=== PATIENT | male | born 1950 | race Two or more races ===

== ENCOUNTER 2024-09-13 18:34 | Emergency (ER) | payer OTHER, SELFPAY ==
[2024-09-13 19:02] VITALS: BP 162/84; PULSE 95; RESP 20; TEMP 37.1; O2SAT 97; BMI 24.0
--- NOTE | 2024-09-13 19:08 | EKG_ITS ---
[facility] Test Date: 2024-09-13 Pat Name: CHRISTOFER GUDINO Department: Room: - Gender: Male [employer]: : 1950 Requested By: Marc Vale ([facility]) Order Number: [id number] Reading MD: Marc Vale ([facility]) Measurements Intervals [place] Rate: 83 P: 62 WI: 131 QRS: 68 QRSD: 102 T: 51 QT: 395 QTc: 466 Interpretive Statements SINUS RHYTHM No previous ECG available for comparison /store/S0/[id number]/ecg/[id number].pdf
--- NOTE | 2024-09-13 19:08 | XR_ITS ---
Examination: CT brain head without contrast. 2-D sagittal coronal reconstructions Date and time of exam:September 13, 2024 1914 hrs. Indications: Altered mental status, weakness lethargy today, family history cerebral aneurysm CTDI: vol (mGy):51.8 DLP: (mGycm):1001 Technique: Multiple CT axial sections of the brain have been obtained, 5 mm slice thickness. Contrast has not been administered. 2-D sagittal, coronal reconstructions have been obtained Low dose protocols were performed. One or more of the following dose reduction techniques were used; automated exposure control, adjustment of the mA and/or KV according to patient size, use of iterative reconstruction technique. Findings: No significant ventricular enlargement. 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 No mass effect or midline shift Basal cisterns are not remarkable. Fourth ventricle is midline. Cranial vault intact. Impression: Negative for acute hemorrhage, mass effect or midline shift As clinically warranted, brain MRI MRA without contrast follow-up would best assess for cerebral aneurysm as well as exclude acute ischemic change
--- NOTE | 2024-09-13 19:10 | PD.EDRME ---
Rapid Medical Screening Exam RME Arrival date/time: 09/13/24 18:34 34-year-old male presents emergency department complaining of dizziness with nausea and vomiting. Chief Complaint: Nausea/Vomiting/Diarrhea Time Seen by Provider: 09/13/24 19:05 Vital signs: Vital Signs Temperature 98.7 F 09/13/24 19:02 Pulse Rate 95 09/13/24 19:02 Respiratory Rate 20 09/13/24 19:02 Blood Pressure 162/84 H 09/13/24 19:02 Pulse Oximetry (%) 97 09/13/24 19:02 Oxygen Delivery Method Room Air 09/13/24 19:02 Vital signs reviewed by provider: Yes
[2024-09-13] MEDS: ONDANSETRON ODT 4 MG TABRAP PO (19:14)
[2024-09-13 20:07] LABS: Basophils # (Auto) 0.1 Thou/mm3 (0.0-0.2); Basophils % (Auto) 1 % (0-2.5); Eosinophils % (Auto) 0 % (0-10); Hematocrit 43.3 % (41.0-53.0); Hemoglobin 14.6 g/dL (13.5-16.0); Immature Granulocytes % (Auto) 0 % (0-0); Immature Granulocytes Auto 0.06 Thou/mm3 (0.00-0.00); Lymphocytes # (Auto) 0.7 Thou/mm3 (1.0-4.8); Lymphocytes % (Auto) 4 % (10-50); Mean Corpuscular HGB Conc 33.7 g/dl (31.0-37.0); Mean Corpuscular Hemoglobin 29.8 pg (25.0-35.0); Mean Corpuscular Volume 88 fL (80-100); Monocytes % (Auto) 6 % (0-12); Neutrophils # (Auto) 14.7 Thou/mm3 (1.8-7.7); Neutrophils % (Auto) 89 % (37-80); Nucleated Red Blood Cell % 0 /100 WBC (0); Platelet Count 299 Thou/mm3 (140-440); RDW Standard Deviation 41.2 fL (35.1-43.9); White Blood Count 16.5 Thou/mm3 (3.8-10.6)
[2024-09-13 20:35] LABS: Partial Thromboplastin Time 21.8 Seconds (22.0-36.0); Prothrombin Time 11.1 Seconds (9.0-12.2)
[2024-09-13 20:36] LABS: B-Type Natriuretic Peptide < 20 pg/mL (0-100)
[2024-09-13 20:42] LABS: Collection Type, Urine Clean Catch; Squamous Epithelial Cell,Urine 0 /hpf (0-5)
[2024-09-13 20:44] LABS: Alanine Aminotransferase 14 U/L (10-49); Albumin, Serum 4.3 gm/dL (3.4-4.8); Albumin/Globulin Ratio 1.5 (1.2-2.2); Alkaline Phosphatase 51 U/L (46-116); Anion Gap 5 (7-16); Aspartate Amino Transferase 16 U/L (0-34); BUN/Creatinine Ratio 18 Ratio (12-20); Bilirubin,Total 0.6 mg/dL (0.3-1.2); Blood Urea Nitrogen 14 mg/dL (9-23); Calcium 9.4 mg/dL (8.3-10.6); Calcium (Corrected) 9.4 mg/dL (8.5-10.1); Carbon Dioxide 29.1 mMol/L (20.0-31.0); Chloride 105 mMol/L (98-107); Creatinine (Component) 0.8 mg/dL (0.6-1.3); Estimated Creatinine Clearance 58.1 mL/min (>60); Globulin 2.9 gm/dL (2.3-3.5); Glucose 148 mg/dL (74-106); Magnesium 2.1 mg/dL (1.6-2.6); Osmolality,Calculated 281 (275-295); Potassium 3.6 mMol/L (3.4-5.1); Sodium 139 mMol/L (136-145); Total Protein 7.2 gm/dL (5.7-8.2); Troponin I < 0.002 ng/mL (0.0-0.045); eGFR > 60 See Note
[2024-09-13 20:49] LABS: Bilirubin,Urine Negative (Negative); Blood,Urine Negative (Negative); Clarity,Urine Clear (Clear/Hazy); Color,Urine Yellow (Lt Yel-Yel); Glucose, Urine Trace (Negative); Ketones,Urine 2+ (Negative); Leukocyte Esterase,Urine Negative (Negative); Nitrite,Urine Negative (Negative); Protein,Urine Trace (Neg - Trace); RBC,Urine 2 /hpf (0-3); Specific Gravity,Urine 1.023 (1.001-1.035); Urobilinogen,Urine Negative mg/dL (0.0-1.0); WBC,Urine 1 /hpf (0-5)
[2024-09-13 21:04] LABS: Amphetamine/Methamp Scrn,U Negative (Negative); Barbiturate Screen,Urine Negative (Negative); Benzodiazepines Screen,Urine Negative (Negative); Benzoylecgonine Screen, Ur Negative (Negative); Fentanyl Screen,Urine Negative (Negative); Opiate Screen,Urine Negative (Negative); THC Screen,Urine Negative (Negative)
--- NOTE | 2024-09-13 21:52 | EDNOTE_ITS ---
<Statement entered by Jahaira Peterson MD - 09/14/24 19:39> As co-signing physician, I was present and available for consult prn. I concur with the plan and care as documented by the midlevel provider. Nausea/Vomit./Diarrhea-RME/HPI General Chief complaint: Nausea/Vomiting/Diarrhea Stated complaint: dizzy, n/v , weak since 11 am today Time Seen by Provider: 09/13/24 19:05 Arrival date/time: 09/13/24 18:34 RME / HPI RME / HPI Narrative: 74-year-old male patient with no significant medical history, came in for evaluation regarding sudden onset of dizziness, nausea, vomiting, and weakness. Patient also complained of chills, severity moderate. Onset of symptoms earlier today. Denies any cough denies any other complaints no medications taken prior to arrival. Related Data Previous Rx's ?Medication ?Instructions ?Recorded ondansetron HCl 4 mg tablet 4 mg PO Q8H PRN nausea and 09/13/24 vomiting 5 days #20 tabs oseltamivir 75 mg capsule (Tamiflu) 75 mg PO BID 5 days #10 caps 09/13/24 Allergies Allergy/AdvReac Type Severity Reaction Status Date / Time No Known Allergies Allergy Verified 09/13/24 18:35 Review of Systems Review of Systems Narrative Review of Systems: Review of system reviewed and within normal limits except mentioned in HPI ED Exam Narrative Physical exam: VITAL SIGNS: Reviewed. GENERAL APPEARANCE: Alert and interactive, follows commands, no acute distress, HEAD AND FACE: Non-traumatic. ENT: PERRL, pink conjunctivitis, eyelid no trauma, Mucous membrane moist. NECK: Supple, nontender, no nuchal rigidity. CHEST: No tenderness, no crepitus, no paradoxical movement, no retractions. LUNGS: Clear, well ventilated, symmetric, no rales, no wheezing, no ronchi, no stridor, good breath sounds bilaterally. HEART: Regular rate, regular rhythm, no murmur, no gallops. ABDOMEN: Soft, positive bowel sounds, nondistended, no guarding, nontender, no rebound, no masses, RECTAL: Deferred. GENITAL: Deferred. NEUROLOGICAL: Gross motor function intact sensory function intact, Appropriate for age. MUSCULOSKELETAL: low back nontender, full range of motion. EXTREMITIES: Nontender, full range of motion. SKIN: Color pink, dry, no rash, no lacerations, no abrasions, no contusions. LYMPHATICS: Deferred. Course Quality Measures none Orders Category Date Time Status Bedside COVID-19 Antigen Test NOW Care 09/13/24 19:09 Active Bedside Influenza A&B Antigen Test NOW Care 09/13/24 19:09 Completed EKG (ED ONLY) *Do not use* NOW Care 09/13/24 19:[address] head/brain wo con Stat Exams 09/13/24 19:08 Completed EKG (ED Only) Stat Exams 09/13/24 19:08 Draft B-Type Natriuretic Peptide Stat Lab 09/13/24 20:00 Completed CBC Stat Lab 09/13/24 20:00 Completed Comprehensive Metabolic Panel Stat Lab 09/13/24 20:00 Completed Drug Screen,Urine Stat Lab 09/13/24 20:13 Completed Magnesium Stat Lab 09/13/24 20:00 Completed Partial Thromboplastin Time Stat Lab 09/13/24 20:00 Completed Prothrombin Time with INR Stat Lab 09/13/24 20:00 Completed Troponin I Stat Lab 09/13/24 20:00 Completed Urinalysis Stat Lab 09/13/24 20:13 Completed Ondansetron Odt [Zofran Odt] Med 09/13/24 19:10 Discontinued 4 mg PO X1 ONE Oseltamivir [Tamiflu] Med 09/13/24 21:47 Discontinued 75 mg PO X1 ONE Vital Signs Vital signs: Vital Signs Temperature 98.7 F 09/13/24 19:02 Pulse Rate 95 09/13/24 19:02 Respiratory Rate 20 09/13/24 19:02 Blood Pressure 162/84 H 09/13/24 19:02 Pulse Oximetry (%) 97 09/13/24 19:02 Oxygen Delivery Method Room Air 09/13/24 19:02 Nausea/Vomiting/Diarrhea MDM Narrative MDM Narrative:: 74-year-old male patient with no significant medical history, came in for evaluation regarding sudden onset of dizziness, nausea, vomiting, and weakness. Patient also complained of chills, severity moderate. Onset of symptoms earlier today. Denies any cough denies any other complaints no medications taken prior to arrival. Patient tested positive for influenza A, CT scan of the head came back unremarkable. The rest of the labs unremarkable except for leukocytosis 16.5 which could be reactive in nature due to vomiting. Patient was given Zofran and Tamiflu in the emergency room. Prior to discharge patient told me that he feels better and not nauseous anymore. Patient is ready to go home. Patient data External records reviewed:: None Clinical information provided by:: none Social determinants that could affect healthcare access:: none Patient has the following chronic illnesses:: None How is presenting disease/condition affected by chronic disease/condition?: no chronic disease Evaluation data The following diagnostics were reviewed and interpreted by me:: lab results, radiology exam(s) and EKG tracing(s) Lab and/or radiology exams considered but not ordered:: None Interpretation Summary: EKG as interpreted by me showed normal sinus rhythm, ventricular rate of 83 bpm, no ST segment elevation or depression noted. CT scan of the head came back unremarkable. The rest of the labs unremarkable except for leukocytosis 16.5. Medications / Prescriptions Medications / Prescriptions considered but not ordered:: None Medication administrations:: Medication Administration History Discontinued Medications Ondansetron HCl (Ondansetron Odt 4 Mg Tabrap) 4 mg PO X1 ONE; Protocol Stop: 09/13/24 19:11 Last Admin: 09/13/24 19:14 Dose: 4 mg Documented By: Oseltamivir Phosphate (Oseltamivir 75 Mg Capsule) 75 mg PO X1 ONE Stop: 09/13/24 21:48 Zofran and Tamiflu l Consultations Consultation(s) initiated? (list below): No Diagnosis Nausea Differential Diagnosis: gastroenteritis, dehydration and other (Influenza) Most likely diagnosis given after review of the tests above:: Influenza Admission Indicated Admission indicated?: not indicated Explain why admission is indicated or not indicated:: Stable Admission Request Was there a request for admission?: No Disposition Plan Disposition Plan: Discharge Discharge Attestation Discharge Attestation: The patient and all family members were given an opportunity to ask questions and understood the discharge instructions. Discharge instructions specifically effects, indications for sooner follow up or return to the emergency department, and the expected course of current diagnosis. Patient condition: Stable Discharge Plan Plan Patient Disposition: HOME (Self Care) Disposition Comment: stable Prescriptions/Referrals Prescriptions/Med Rec: New oseltamivir [Tamiflu] 75 mg capsule 75 mg PO BID 5 Days Qty: 10 0RF ondansetron HCl 4 mg tablet 4 mg PO Q8H PRN (Reason: nausea and vomiting) 5 Days Qty: 20 0RF Referrals: Tanja Ryan MD [Primary Care Provider] - In 1 week Problem List Clinical Impression: Influenza Patient/Caregiver Discharge Instructions Discharge Activity: activity as tolerated Education Materials: ED Influenza (Adult) Additional Instructions: Thank you for the opportunity for serving you today. You are stable for discharged . You are advised to: Follow-up with your PCP in 1 to 2 days Return to ED for worsening of symptoms Increase oral fluids Take medication as prescribed Print Language: Haitian Stand Alone Forms: Penny Award Info., Patient Portal Info Letter PA/[employer] Supervising Physician PA/[employer] Supervising Physician: MD Kristen
[2024-09-13] MEDS: OSELTAMIVIR 75 MG CAPSULE PO (21:57)
== END 2024-09-13 22:17 | disposition home or self-care (01) ==
PROVIDERS: Emergency Provider Emergency Medicine; PCP Family Medicine
DX: J11.1 Influenza due to unidentified influenza virus with other respiratory manifestations (principal); R41.82 Altered mental status, unspecified; R53.1 Weakness; R53.83 Other fatigue; Z82.3 Family history of stroke
CPT/HCPCS: 36415; 70450; 80053; 80307; 81001; 83735; 83880; 84484; 85025; 85610; 85730; 87400; 87811; 93005; 99284; Q0162; A9270

== ENCOUNTER → 2025-07-08 | Outpatient (CLI) | payer OTHER, SELFPAY ==
[2025-07-08 12:06] LABS: Basophils # (Auto) 0.1 Thou/mm3 (0.0-0.2); Basophils % (Auto) 2 % (0-2.5); Eosinophils # (Auto) 0.5 Thou/mm3 (0.0-0.5); Eosinophils % (Auto) 9 % (0-10); Hematocrit 42.0 % (41.0-53.0); Hemoglobin 14.0 g/dL (13.5-16.0); Immature Granulocytes Auto 0.00 Thou/mm3 (0.00-0.00); Lymphocytes # (Auto) 1.2 Thou/mm3 (1.0-4.8); Lymphocytes % (Auto) 23 % (10-50); Mean Corpuscular HGB Conc 33.3 g/dl (31.0-37.0); Mean Corpuscular Hemoglobin 29.7 pg (25.0-35.0); Mean Corpuscular Volume 89 fL (80-100); Monocytes # (Auto) 0.7 Thou/mm3 (0.0-0.8); Monocytes % (Auto) 13 % (0-12); Neutrophils # (Auto) 2.8 Thou/mm3 (1.8-7.7); Neutrophils % (Auto) 53 % (37-80); Nucleated Red Blood Cell # 0.00 Thou/mm3 (0.00-0.00); Nucleated Red Blood Cell % 0 /100 WBC (0); Platelet Count 283 Thou/mm3 (140-440); RDW Standard Deviation 43.0 fL (35.1-43.9); Red Blood Count 4.71 Miln/mm3 (4.50-5.90); White Blood Count 5.2 Thou/mm3 (3.8-10.6)
[2025-07-08 12:37] LABS: Alanine Aminotransferase 19 U/L (10-49); Albumin, Serum 3.7 gm/dL (3.4-4.8); Albumin/Globulin Ratio 1.5 (1.2-2.2); Alkaline Phosphatase 50 U/L (46-116); Anion Gap 7 (7-16); Aspartate Amino Transferase 22 U/L (0-34); BUN/Creatinine Ratio 10 Ratio (12-20); Bilirubin,Total 0.8 mg/dL (0.3-1.2); Blood Urea Nitrogen 9 mg/dL (9-23); Calcium 8.8 mg/dL (8.3-10.6); Calcium (Corrected) 9.0 mg/dL (8.5-10.1); Carbon Dioxide 28.5 mMol/L (20.0-31.0); Cardiac Risk Estimate 3.3 RATIO (4.0-6.7); Chloride 106 mMol/L (98-107); Cholesterol 157 mg/dL (132-200); Creatinine (Component) 0.9 mg/dL (0.6-1.3); Globulin 2.5 gm/dL (2.3-3.5); Glucose 94 mg/dL (74-106); HDL Cholesterol 47 mg/dL (40-60); LDL Cholesterol,Calculated 94 mg/dL (0-130); Osmolality,Calculated 279 (275-295); Potassium 4.2 mMol/L (3.4-5.1); Sodium 141 mMol/L (136-145); Thyroid Stimulating Hormone 3.56 uIU/mL (0.55-4.78); Total Protein 6.2 gm/dL (5.7-8.2); Triglycerides 81 mg/dL (30-150); eGFR > 60 See Note
[2025-07-08 12:38] LABS: Prostate Specific Antigen 3.11 ng/mL (0-4.00)
[2025-07-08 12:40] LABS: Collection Type, Urine Clean Catch
[2025-07-08 13:39] LABS: Bilirubin,Urine Negative (Negative); Blood,Urine Negative (Negative); Clarity,Urine Clear (Clear/Hazy); Color,Urine Lt-Yellow (Lt Yel-Yel); Glucose, Urine Negative (Negative); Ketones,Urine Negative (Negative); Leukocyte Esterase,Urine Negative (Negative); Nitrite,Urine Negative (Negative); PH,Urine 7.0 (5.0-7.0); Protein,Urine Negative (Neg - Trace); RBC,Urine 1 /hpf (0-3); Specific Gravity,Urine 1.018 (1.001-1.035); Squamous Epithelial Cell,Urine < 1 /hpf (0-5); Urobilinogen,Urine Negative mg/dL (0.0-1.0); WBC,Urine < 1 /hpf (0-5)
== END | disposition home or self-care (01) ==
LOC: COPL 11:39
PROVIDERS: PCP Family Medicine; Referring Provider Family Medicine; Visit Provider Family Medicine
DX: Z00.00 Encounter for general adult medical examination without abnormal findings (principal)
CPT/HCPCS: 36415; 80053; 80061; 81001; 84153; 84443; 85025